=== PATIENT | male | born 1950 | race Caucasian/White ===

== ENCOUNTER 2023-01-17 14:15 | Outpatient (CLI) | payer BC, SELFPAY ==
[2023-01-17 19:09] LABS: Kit Draw Collected
== END 2023-01-17 14:16 | disposition home or self-care (01) ==
LOC: ANHGOSHLAB 14:17
PROVIDERS: PCP Family Medicine; Visit Provider Family Medicine
DX: E78.5 Hyperlipidemia, unspecified (principal); E53.8 Deficiency of other specified B group vitamins; E11.9 Type 2 diabetes mellitus without complications; I10 Essential (primary) hypertension; R97.20 Elevated prostate specific antigen [PSA]; Z12.5 Encounter for screening for malignant neoplasm of prostate
CPT/HCPCS: 36415

== ENCOUNTER 2023-05-06 02:01 | Day surgery (SDC) | payer BC, SELFPAY ==
[2023-04-19 14:24] VITALS: BMI 27.0
--- NOTE | 2023-05-03 10:10 | SUR.PREOP ---
Patient called regarding upcoming procedure. Reviewed preop instructions, appointment times, and procedure prep.
--- NOTE | 2023-05-03 17:19 | PM.HPGS ---
History of Present Illness History of Present Illness Consent: Risks, benefits, and alternatives have been discussed and questions answered. Patient agrees to proceed with procedure. Chief complaint: neoplasm screening Narrative: Guero Antoine is a 73 year old male Referred for colon cancer screening. Review of Systems Review of Systems: All systems reviewed & are unremarkable except as noted in HPI and below PMFSH Past Medical History Medical History Dyslipidemia Environmental allergies Essential (primary) hypertension GERD without esophagitis History of colon polyps Type 2 diabetes mellitus without complication, without long-term current use of insulin 10/11/2017 Surgical History Surgical History History of appendectomy age 7 [place] teeth extracted in the Family History Family History Other Diabetes mellitus Social History Social History Smoking status: Never smoker Second hand tobacco smoke exposure: No Alcohol intake: never Substance use: never Substance use type: does not use Lack of Transportation: No Lack of Food: Never True Current Housing: I Have Housing Concerned About Future Housing: No Difficulty Paying Gas/Electric Bills: No Difficulty Paying for Meds: No Currently Unemployed: No Education: Bachelor's Degree Difficulty w/ Childcare or Family Care: No Living arrangements: with family Additional living arrangements comments: Occupation/Education: retired Gender identity (if verbalized by the patient): Male Sexual Orientation (if Verbalized by the Patient): Straight or Heterosexual Spiritual care concerns: No Agree to blood products: Yes Meds Home Medications and Allergies Home Medications Medication Instructions Recorded Confirmed Type loratadine 10 mg tablet 10 mg PO DAILY 06/19/19 05/06/23 History omeprazole 20 mg capsule,delayed 20 mg PO DAILY 06/19/19 05/06/23 History release lancets 33 gauge (Gale Hurtado #100 ea 06/21/19 05/06/23 Rx Lancets) multivitamin (Daily Multi-Vitamin 1 tablet PO DAILY 01/17/23 05/06/23 History tablet) omega-3 650 mg-dha 400 mg-epa 200 1 cap PO DAILY 01/17/23 05/06/23 History mg-fish oil-vit D3 300 unit capsule ([place]-3 Plus Vitamin D3) lisinopril 20 mg tablet 20 mg PO DAILY #90 tabs 03/12/23 05/06/23 Rx chlorthalidone 50 mg tablet 50 mg PO DAILY #90 tabs 03/25/23 05/06/23 Rx simvastatin 20 mg tablet 20 mg PO QHS #90 tabs 04/16/23 05/06/23 Rx semaglutide 0.25 mg or 0.5 mg (2 0.25 mg (0.368 mL) subcut WEEKLY 04/17/23 05/06/23 Rx mg/3 mL) subcutaneous pen injector #3 mL (Dropbox) Allergies Allergy/AdvReac Type Severity Reaction Status Date / Time No Known Allergies Allergy Unknown Verified 05/06/23 09:11 Exam Const: General: alert Orientation/consciousness: patient oriented x3 Resp: Auscultation: clear to auscultation bilaterally Cardio: Rhythm: regular rhythm GI: GI Palp: Yes Soft to palpation and No Tenderness to palpation present (GI) Neuro: General: patient oriented x3 Assessment and Plan Assessment and plan (1) Colon cancer screening: Code(s): Z12.11 - Encounter for screening for malignant neoplasm of colon Status: Acute Assessment and Plan: Colonoscopy with possible biopsy or polypectomy or cautery or injection of substances.
[2023-05-06 09:05] VITALS: BP 137/81; PULSE 83; RESP 16; TEMP 36.3; O2SAT 97; BMI 27.0
[2023-05-06] MEDS: LACTATED RINGERS 1,000 ML 150 ML IV CONT (09:25)
[2023-05-06 09:29] LABS: Glucose Point of Care 113 mg/dl (65-105)
--- NOTE | 2023-05-06 10:08 | WPDANESEPPF ---
Anes - Initial Pre Proc Eval Procedure: Operation Date: 05/06/23 10:00 Proposed Procedures p Screening Colonoscopy - Tony Phelan MD Date/Time: 05/06/23 10:08 Surgeon: Tony Phelan MD Pre Op Diagnosis: neoplasm screening Patient Data Age: 73 Gender: M Height: 1.8 m Weight: 88 kg Last Vital Signs Temp 97.4 F L 05/06/23 09:05 Pulse 83 05/06/23 09:05 Resp 16 05/06/23 09:05 BP 137/81 05/06/23 09:05 Pulse Ox 97 05/06/23 09:05 O2 Del Method Room Air 05/06/23 09:05 Allergies Allergy/AdvReac Type Severity Reaction Status Date / Time No Known Allergies Allergy Unknown Verified 05/06/23 09:11 Home Medications Medication Instructions Recorded Confirmed Type loratadine 10 mg tablet 10 mg PO DAILY 06/19/19 05/06/23 History omeprazole 20 mg capsule,delayed 20 mg PO DAILY 06/19/19 05/06/23 History release lancets 33 gauge (OneTouch Delica #100 ea 06/21/19 05/06/23 Rx Lancets) multivitamin (Daily Multi-Vitamin 1 tablet PO DAILY 01/17/23 05/06/23 History tablet) omega-3 650 mg-dha 400 mg-epa 200 1 cap PO DAILY 01/17/23 05/06/23 History mg-fish oil-vit D3 300 unit capsule ([place]-3 Plus Vitamin D3) lisinopril 20 mg tablet 20 mg PO DAILY #90 tabs 03/12/23 05/06/23 Rx chlorthalidone 50 mg tablet 50 mg PO DAILY #90 tabs 03/25/23 05/06/23 Rx simvastatin 20 mg tablet 20 mg PO QHS #90 tabs 04/16/23 05/06/23 Rx semaglutide 0.25 mg or 0.5 mg (2 0.25 mg (0.368 mL) subcut WEEKLY 04/17/23 05/06/23 Rx mg/3 mL) subcutaneous pen injector #3 mL (Ozempic) Laboratory Tests 05/06/23 09:18 POC Capillary Glucose 113 H mg/dl (65-105) Patient hx anesthesia problems: none Family hx anesthesia problems: none Results Review: All pre-operative results and documents have been reviewed as part of the pre-operative evaluation. [facility] Past Medical History Medical History Dyslipidemia Environmental allergies Essential (primary) hypertension GERD without esophagitis History of colon polyps Type 2 diabetes mellitus without complication, without long-term current use of insulin 10/11/2017 Surgical History Surgical History History of appendectomy age 7 [place] teeth extracted in the Family History Family History Other Diabetes mellitus Social History Social History Smoking status: Never smoker Second hand tobacco smoke exposure: No Alcohol intake: never Substance use: never Substance use type: does not use Lack of Transportation: No Lack of Food: Never True Current Housing: I Have Housing Concerned About Future Housing: No Difficulty Paying Gas/Electric Bills: No Difficulty Paying for Meds: No Currently Unemployed: No Education: Bachelor's Degree Difficulty w/ Childcare or Family Care: No Living arrangements: with family Additional living arrangements comments: Occupation/Education: retired Gender identity (if verbalized by the patient): Male Sexual Orientation (if Verbalized by the Patient): Straight or Heterosexual Spiritual care concerns: No Agree to blood products: Yes Anes - Eval Final PreProcedure Day of Procedure 05/06/23 10:08 Patient weight: obese Heart: regular rate and rhythm Lungs: clear to auscultation Airway: Mallampati scale class II Neurological: alert and oriented Last oral intake: >/= 8 hours ASA classification: III Emergent: no Anesthetic plan: proceed Anesthesia type and monitoring: general GIVS and standard monitoring Results Review: All pre-operative results and documents have been reviewed as part of the pre-operative evaluation. Informed Consent: The patient's anesthetic plan and its attendant risks and benefits were discussed with the patient/family/
[2023-05-06 10:28] VITALS: BP 100/64; PULSE 65; RESP 12; O2SAT 95
[2023-05-06 10:38] VITALS: BP 112/71; PULSE 66; RESP 12; O2SAT 96
[2023-05-06 10:48] VITALS: BP 111/75; PULSE 62; RESP 16; O2SAT 100
== END 2023-05-06 10:53 | disposition home or self-care (01) ==
PROVIDERS: PCP Family Medicine; Visit Provider Internal Medicine Gastroenterology
PROC: 0DJD8ZZ Inspection of Lower Intestinal Tract, Via Natural or Artificial Opening Endoscopic (ICD-10-PCS; CPT 45378; principal; 2023-05-06 10:00)
DX: Z12.11 Encounter for screening for malignant neoplasm of colon (principal); K57.30 Diverticulosis of large intestine without perforation or abscess without bleeding; E78.5 Hyperlipidemia, unspecified; I10 Essential (primary) hypertension; K21.9 Gastro-esophageal reflux disease without esophagitis; E11.9 Type 2 diabetes mellitus without complications; E66.9 Obesity, unspecified; Z68.27 Body mass index [BMI] 27.0-27.9, adult; Z79.85 Long-term (current) use of injectable non-insulin antidiabetic drugs; Z86.010 Personal history of colon polyps
CPT/HCPCS: 45378; 82948; J2704; J7120

== ENCOUNTER 2023-11-28 11:20 | Outpatient (CLI) | payer BC, SELFPAY ==
[2023-11-28 11:35] LABS: Basophils Absolute Auto 0.1 K/mm3 (0.0-0.1); Basophils Percent Auto 0.7 % (0.2-1.2); Eosinophils Absolute Auto 0.1 K/mm3 (0-0.3); Eosinophils Percent Auto 0.8 % (0-4.4); Hematocrit 42.1 % (42.0-52.0); Hemoglobin 14.5 g/dL (14.0-18.0); Immature Granulocyte Absolute 0.03 K/mm3 (0.00-0.031); Immature Granulocyte Percent A 0.4 % (0-0.5); Lymphocytes Absolute Auto 2.31 K/mm3 (0.9-3.2); Lymphocytes Percent Auto 27.6 % (18.3-44.2); Mean Corpuscular HGB Conc 34.4 g/dl (32-36); Mean Corpuscular Hemoglobin 30.8 pg (26-34); Mean Corpuscular Volume 89.4 fl (80-100); Mean Platelet Volume 10.3 fl (7.4-10.4); Monocytes Absolute Auto 0.7 K/mm3 (0.1-0.6); Monocytes Percent Auto 8.4 % (2.6-8.5); Neutrophils Absolute Auto 5.2 K/mm3 (1.3-6.7); Neutrophils Percent Auto 62.1 % (45.5-73.1); Platelet Count Result 367 k/mm3 (150-375); Red Blood Count 4.71 M/mm3 (4.6-6.20); White Blood Count 8.4 K/mm3 (4.5-10.0)
== END 2023-11-28 11:21 | disposition home or self-care (01) ==
LOC: ANHLAB 11:21
PROVIDERS: PCP Family Medicine; Visit Provider Internal Medicine Hematology & Oncology
DX: D75.838 Other thrombocytosis (principal)
CPT/HCPCS: 36415; 85025

== ENCOUNTER 2024-02-03 11:23 | Outpatient (CLI) | payer BC, SELFPAY ==
[2024-02-03 14:35] LABS: Basophils Absolute Auto 0.1 K/mm3 (0.0-0.1); Basophils Percent Auto 0.7 % (0.2-1.2); Eosinophils Absolute Auto 0.1 K/mm3 (0-0.3); Eosinophils Percent Auto 0.7 % (0-4.4); Hemoglobin 15.5 g/dL (14.0-18.0); Immature Granulocyte Absolute 0.02 K/mm3 (0.00-0.031); Immature Granulocyte Percent A 0.2 % (0-0.5); Lymphocytes Absolute Auto 2.32 K/mm3 (0.9-3.2); Lymphocytes Percent Auto 23.6 % (18.3-44.2); Mean Corpuscular HGB Conc 33.7 g/dl (32-36); Mean Corpuscular Hemoglobin 30.6 pg (26-34); Mean Corpuscular Volume 90.7 fl (80-100); Mean Platelet Volume 10.7 fl (7.4-10.4); Monocytes Absolute Auto 0.8 K/mm3 (0.1-0.6); Monocytes Percent Auto 8.2 % (2.6-8.5); Neutrophils Absolute Auto 6.6 K/mm3 (1.3-6.7); Neutrophils Percent Auto 66.6 % (45.5-73.1); Platelet Count Result 450 k/mm3 (150-375); Red Blood Count 5.07 M/mm3 (4.6-6.20); Red Cell Distribution Width 12.7 % (11.5-14.5); White Blood Count 9.8 K/mm3 (4.5-10.0)
[2024-02-03 15:05] LABS: Creatinine Urine 200.7 mg/dL
[2024-02-03 15:09] LABS: Microalbumin Urine Random 8.1 mg/L (0-16.7)
[2024-02-03 15:23] LABS: Vitamin D 25 Hydroxy 35.1 ng/mL
[2024-02-03 16:48] LABS: Alanine Aminotransferase 28 U/L (6-50); Albumin Level 4.6 g/dL (3.5-5.1); Alkaline Phosphatase 78 U/L (38-126); Anion Gap 13 mmol/L (4-12); Aspartate Amino Transferase 81 U/L (17-59); Bilirubin,Total 1.5 mg/dL (0.2-1.3); Blood Urea Nitrogen 20 mg/dL (9-20); Calcium 9.5 mg/dL (8.4-10.2); Carbon Dioxide 30 mmol/L (22-30); Chloride 95 mmol/L (98-107); Cholesterol 160 mg/dL (0-200); Estimated Glomerular Filt Rate > 60; Glucose 113 mg/dL (65-110); HDL Direct 34 mg/dL; Potassium 3.6 mmol/L (3.4-5.0); Sodium 138 mmol/L (137-145); Triglycerides 122 mg/dL (<150)
[2024-02-03 17:00] LABS: LDL Cholesterol Direct 98 mg/dL
== END 2024-02-03 11:24 | disposition home or self-care (01) ==
LOC: ANHGOSHLAB 11:24
PROVIDERS: PCP Family Medicine; Visit Provider Family Medicine
DX: Z00.00 Encounter for general adult medical examination without abnormal findings (principal); I10 Essential (primary) hypertension; E11.9 Type 2 diabetes mellitus without complications; E78.5 Hyperlipidemia, unspecified; E53.8 Deficiency of other specified B group vitamins; E55.9 Vitamin D deficiency, unspecified
CPT/HCPCS: 36415; 80053; 80061; 82043; 82306; 82607; 83036; 85025

== ENCOUNTER 2024-03-16 12:15 | Outpatient (CLI) | payer BC, SELFPAY ==
--- NOTE | 2024-03-16 12:38 | ECG_ITS ---
Test Date: 2024-03-16 12:59:47 Measurements Intervals [place] Rate: 88 P: 5 VT: 139 QRS: -39 QRSD: 105 T: 34 QT: 363 QTc: 441 Interpretive Statements SINUS RHYTHM WITH ATRIAL PREMATURE COMPLEX LEFT AXIS DEVIATION DELAYED PRECORDIAL R/S TRANSITION NONSPECIFIC ST ELEVATION IN DIFFUSE LEADS BORDERLINE T WAVE ABNORMALITY- INFERIOR LEADS BASELINE ARTIFACT- I, II, III, AVR, AVL, AVF BORDERLINE ECG No previous ECG available for comparison Electronically Signed On 03-16-2024 13:44:14 CDT by Elías Neely D.O.
== END 2024-03-16 12:16 | disposition home or self-care (01) ==
LOC: ANHSURGERY 12:18
PROVIDERS: PCP Family Medicine; Visit Provider Urology
DX: Z01.818 Encounter for other preprocedural examination (principal); I10 Essential (primary) hypertension; I49.8 Other specified cardiac arrhythmias; I49.1 Atrial premature depolarization; I44.4 Left anterior fascicular block
CPT/HCPCS: 93005

== ENCOUNTER 2024-03-19 03:14 | Day surgery (SDC) | payer BC, SELFPAY ==
--- NOTE | 2024-03-10 06:58 | PM.HPGS ---
History of Present Illness History of Present Illness Consent: Risks, benefits, and alternatives have been discussed and questions answered. Patient agrees to proceed with procedure. Chief complaint: Elev PSA Narrative: Guero Antoine is a 74 year old male Who has previously undergone 1 prior negative prostate biopsy in July 2021 when his PSA was 6.1. He would now has a PSA of 15.77 and a prostate MRI showing a PI-RADS 5 16 mm lesion in the left anterior transition zone at the mid prostate. After discussion of options he elects for urodynamics prostate biopsy. He is aware of the risks including, but not limited to, hematuria, rectal bleeding and bacteremia Review of Systems Review of Systems: All systems reviewed & are unremarkable except as noted in HPI and below PMFSH Past Medical History Medical History Dyslipidemia Elevated platelet count Environmental allergies Essential (primary) hypertension GERD without esophagitis History of colon polyps Type 2 diabetes mellitus without complication, without long-term current use of insulin 10/11/2017 Surgical History Surgical History History of appendectomy age 7 History of cataract extraction with lens replacement (~08/2023) Right 05/09 Left 09/07 [place] teeth extracted in the Family History Family History Other Diabetes mellitus Social History Social History Smoking status: Never smoker Second hand tobacco smoke exposure: No Alcohol intake: never Substance use: never Substance use type: does not use Lack of Transportation: No Lack of Food: Never True Current Housing: I Have Housing Concerned About Future Housing: No Difficulty Paying Gas/Electric Bills: No Difficulty Paying for Meds: No Currently Unemployed: No Education: Bachelor's Degree Difficulty w/ Childcare or Family Care: No Living arrangements: with family Additional living arrangements comments: Occupation/Education: retired Gender identity (if verbalized by the patient): Male Sexual Orientation (if Verbalized by the Patient): Straight or Heterosexual Spiritual care concerns: No Agree to blood products: Yes Meds Home Medications and Allergies Home Medications Medication Instructions Recorded Confirmed Type loratadine 10 mg tablet 10 mg PO DAILY 06/19/19 02/03/24 History omeprazole 20 mg capsule,delayed 20 mg PO DAILY 06/19/19 02/03/24 History release lancets 33 gauge (Gale Hurtado #100 ea 06/21/19 02/03/24 Rx Lancets) multivitamin (Daily Multi-Vitamin 1 tablet PO DAILY 01/17/23 02/03/24 History tablet) omega-3 650 mg-dha 400 mg-epa 200 1 cap PO DAILY 01/17/23 02/03/24 History mg-fish oil-vit D3 300 unit capsule ([place]-3 Plus Vitamin D3) chlorthalidone 50 mg tablet 50 mg PO DAILY #90 tabs 12/23/23 02/03/24 Rx metformin 500 mg tablet,extended 2,000 mg PO DAILY #360 tabs 01/13/24 02/03/24 Rx release 24 hr simvastatin 20 mg tablet 20 mg PO QHS #90 tabs 01/14/24 02/03/24 Rx lisinopril 20 mg tablet 20 mg PO DAILY #90 tabs 03/09/24 Rx Allergies Allergy/AdvReac Type Severity Reaction Status Date / Time No Known Allergies Allergy Unknown Verified 02/03/24 10:39 Exam Const: General: no acute distress Resp: Effort & Inspection: normal respiratory effort GI: Inspection: non-distended GI Palp: No abdominal tenderness and No Guarding due to palpation present (GI) Auscultation: normal bowel sounds Assessment and Plan Assessment and plan (1) Elevated PSA: Code(s): R97.20 - Elevated prostate specific antigen [PSA] Status: Acute Assessment and Plan: UroNav prostate biopsy
[2024-03-16 10:51] VITALS: BMI 27.1
--- NOTE | 2024-03-16 10:52 | PC.NURSE ---
Report to the Outpatient Waiting Room, entrance under the green pavilion located off [facility], at time _0600_ on date _[id number]_. Planned Procedure Time: _0730_.? Time changes happen often and if your time is changed the preop area will call you the afternoon before. - You and your visitor will be asked to self-screen and do not enter if you have any COVID symptoms. Please call surgeon if you need to reschedule. - A mask is optional within the hospital at this time. Patients may have clear liquids (water, carbonated beverages, clear teas, apple juice) until 3 hours prior to surgery with a maximum of 20 ounces. - No food from midnight until time of surgery and no smoking Take only the following medications with a SIP of water on the morning of surgery: ____None DO NOT STOP ANY OF YOUR OTHER PRESCRIPTION MEDICATIONS PRIOR TO SURGERY EXCEPT THE FOLLOWING Medications to discontinue per physician Vitamins and fish oil Date to take last dose___Stop today. Please no make-up, nail ukrainian, hairspray, perfume, deodorant, or body powder the day of surgery.? No jewelry (including any body piercings) or valuables the day of surgery, leave them at home.? Please take a shower or bath the night before, or the morning of, surgery with an antibacterial soap.? Wear comfortable, loose fitting clothing.? - Jewelry must be removed prior to entering the operating room.? Rings and piercings that are not removed may be cut off. - The hospital will not accept responsibility for valuables.? - Please leave all valuables, including medications, at home the day of surgery. If you are going home after surgery, a licensed fork truck driver must drive you home.? - NO public transportation without another adult if you receive anesthesia. - We recommend that an adult stay with you for 24 hours following discharge. - We also recommend that you do not drive, make important decision, drink alcoholic beverages, or take any drugs that were not prescribed by your health care provider for at least 24 hours after your discharge time. Follow any additional instructions given to you from your surgeon. Telephone instructions given to __Mike__and asked if any additional questions and then verbalized understanding. Patient advised to call surgeon office or pre surgery nurse liaison [phone] if any additional questions.
[2024-03-19 06:35] VITALS: BP 136/76; PULSE 73; RESP 18; TEMP 36.4; O2SAT 98
--- NOTE | 2024-03-19 06:39 | WPDHPUPDATE1 ---
History and Physical Update Update Date/Time: 03/19/24 06:39 History and Physical has been reviewed, including an updated exam of the patient. There are NO changes in the patient's condition. Risks, benefits, and alternatives have been discussed and questions answered. Patient agrees to proceed with procedure.
[2024-03-19] MEDS: LACTATED RINGERS 1,000 ML 30 ML IV CONT (06:40)
[2024-03-19 06:46] LABS: Glucose Point of Care 113 mg/dl (65-105)
--- NOTE | 2024-03-19 06:57 | WPDANESEPPF ---
Anes - Initial Pre Proc Eval Procedure: Operation Date: 03/19/24 07:30 Proposed Procedures p Trans Rectal Ultrasound Fusion Guided Prostate Biopsy - Benjamin Deutsch MD Date/Time: 03/19/24 06:57 Surgeon: Benjamin Deutsch MD Pre Op Diagnosis: Elev PSA Patient Data Age: 74 Gender: M Height: 1.8 m Weight: 89.4 kg Last Vital Signs Temp 97.5 F L 03/19/24 06:35 Pulse 73 03/19/24 06:35 Resp 18 03/19/24 06:35 BP 136/76 03/19/24 06:35 Pulse Ox 98 03/19/24 06:35 O2 Del Method Room Air 03/19/24 06:35 Allergies Allergy/AdvReac Type Severity Reaction Status Date / Time No Known Allergies Allergy Unknown Verified 03/19/24 06:48 Home Medications Medication Instructions Recorded Confirmed Type loratadine 10 mg tablet 10 mg PO DAILY 06/19/19 03/19/24 History omeprazole 20 mg capsule,delayed 20 mg PO DAILY 06/19/19 03/19/24 History release lancets 33 gauge (OneTouch Delica #100 ea 06/21/19 03/19/24 Rx Lancets) multivitamin (Daily Multi-Vitamin 1 tablet PO DAILY 01/17/23 03/19/24 History tablet) omega-3 650 mg-dha 400 mg-epa 200 1 cap PO DAILY 01/17/23 03/19/24 History mg-fish oil-vit D3 300 unit capsule ([place]-3 Plus Vitamin D3) chlorthalidone 50 mg tablet 50 mg PO DAILY #90 tabs 12/23/23 03/19/24 Rx metformin 500 mg tablet,extended 2,000 mg PO DAILY #360 tabs 01/13/24 03/19/24 Rx release 24 hr simvastatin 20 mg tablet 20 mg PO QHS #90 tabs 01/14/24 03/19/24 Rx lisinopril 20 mg tablet 20 mg PO DAILY #90 tabs 03/09/24 03/19/24 Rx Laboratory Tests 03/19/24 06:40 POC Capillary Glucose 113 H mg/dl (65-105) Patient hx anesthesia problems: none Family hx anesthesia problems: none Results Review: All pre-operative results and documents have been reviewed as part of the pre-operative evaluation. [facility] Past Medical History Medical History Dyslipidemia Elevated platelet count Environmental allergies Essential (primary) hypertension GERD without esophagitis History of colon polyps Type 2 diabetes mellitus without complication, without long-term current use of insulin 10/11/2017 Surgical History Surgical History History of appendectomy age 7 History of cataract extraction with lens replacement (~08/2023) Right 05/09 Left 09/07 [place] teeth extracted in the Family History Family History Other Diabetes mellitus Social History Social History Smoking status: Never smoker Second hand tobacco smoke exposure: No Alcohol intake: never Substance use: never Substance use type: does not use Lack of Transportation: No Lack of Food: Never True Current Housing: I Have Housing Concerned About Future Housing: No Difficulty Paying Gas/Electric Bills: No Difficulty Paying for Meds: No Currently Unemployed: No Education: Bachelor's Degree Difficulty w/ Childcare or Family Care: No Living arrangements: with family Additional living arrangements comments: Occupation/Education: retired Gender identity (if verbalized by the patient): Male Sexual Orientation (if Verbalized by the Patient): Straight or Heterosexual Spiritual care concerns: No Agree to blood products: Yes Anes - Eval Final PreProcedure Day of Procedure 03/19/24 06:57 Patient weight: overweight Heart: regular rate and rhythm Lungs: clear to auscultation Airway: Mallampati scale class II and special considerations (Chips to upper teeth noted. ) Neurological: alert and oriented Last oral intake: >/= 8 hours ASA classification: III Emergent: no Anesthetic plan: proceed Anesthesia type and monitoring: general GIVS and standard monitoring Results Review: All pre-operative results and documents
[2024-03-19 07:52] VITALS: BP 99/69; PULSE 63; RESP 20; O2SAT 97
--- NOTE | 2024-03-19 07:56 | P.OP_ITS ---
Procedure Note - Detailed Date of Procedure 03/19/24 Pre-op Diagnosis Elevated PSA and abnormal prostate MRI Post-op Diagnosis Same Procedure Performed UroNav prostate fusion biopsy Surgeon Benjamin Deutsch MD Anesthesia General Description of Procedure Patient is brought to the operative suite where he is positioned in the left lateral position. Systemic sedation is administered per the anesthesia department. Surgical time-out is undertaken and it's verified the patient has received preoperative antibiotics. Transrectal ultrasonography is undertaken with a standard transrectal probe. The [employer] DigitalNav system is used to superimpose his previously obtained mpMRI prostate images on the real-time transrectal ultrasond images. Prostate volume is calculated at []cc. On the previous mpMRI there is one region of interest. Using the transrectal needle design for prostate biopsies 3 cores from each region of interest her obtain. We then proceeded with a standard 12 core prostate biopsy. Transrectal probe was removed and patient taken to recovery room having tolerated the procedure well. Blood loss was less than 2 cc. Pathology Yes Complications No immediate complications
[2024-03-19 08:12] LABS: Glucose Point of Care 103 mg/dl (65-105)
[2024-03-19 08:20] VITALS: BP 117/69; PULSE 66; O2SAT 94
[2024-03-19 08:50] VITALS: BP 113/70; PULSE 63
== END 2024-03-19 08:57 | disposition home or self-care (01) ==
PROVIDERS: PCP Family Medicine; Visit Provider Urology
PROC: (CPT 55700; principal; 2024-03-19 07:30)
DX: C61 Malignant neoplasm of prostate (principal); E11.9 Type 2 diabetes mellitus without complications; I10 Essential (primary) hypertension; E78.5 Hyperlipidemia, unspecified; K21.9 Gastro-esophageal reflux disease without esophagitis; Z79.84 Long term (current) use of oral hypoglycemic drugs
CPT/HCPCS: 76872; 55700; 82948; 88342; G0416; J0696; J2003; J2250; J2405; J2704; J3010; J7120

== ENCOUNTER 2024-04-02 08:27 | Outpatient (CLI) | payer BC, SELFPAY ==
--- NOTE | ~2024-04-02 | CT_ITS ---
Non-contrast CT scan of the Abdomen and Pelvis Clinical indication: Benign prosthetic hyperplasia Technique: 2.5 mm axial scans were obtained through the abdomen and pelvis without intravenous or or al contrast. Dose reduction technique was used on this scan by utilizing automated exposure control a nd iterative reconstruction technique. The dose-length product (DLP) was 790.90 mGy-cm. Findings: Images through the lung bases reveal no abnormalities. There is no evidence of renal or ureteral calculi. The kidneys and the ureters are nondilated. The liver, spleen, pancreas, and adrenals appear normal. Small calcified gallstone noted. There are a therosclerotic calcifications of the aorta. . There is no evidence of bowel obstruction. There is minimal haziness in the central mesentery with sh otty lymph nodes noted. Images through the pelvis were performed. There is no evidence of ascites or lymphadenopathy. Urinary bladder unremarkable. Prostate gland enlarged. Chronic appearing compression deformity of L1 noted, moderate in severity. Impression: Enlarged prostate gland, consistent with provided history of BPH. Mild mesenteric panniculitis. Cholelithiasis. L1 compression fracture, likely chronic. Reviewed, dictated and finalized at location . Impression: Enlarged prostate gland, consistent with provided history of BPH. Mild mesenteric panniculitis. Cholelithiasis. L1 compression fracture, likely chronic.
--- NOTE | ~2024-04-02 | NM_ITS ---
EXAMINATION: NM bone scan whole body DATE: 04/02/2024 12:32 INDICATION: Benign prostatic hyperplasia TECHNIQUE: 26.8 mCi Tc-99m HDP was administered intravenously. Delayed whole-body scintigrams were o btained. COMPARISON: CT abdomen and pelvis dated 04/02/2024 FINDINGS: Small focus of mild uptake at the lateral right superior orbital rim which corresponds in location to a small lytic lesion with sclerotic margins on CT from 12 years prior with the chronicity favoring a benign etiology such as fibrous dysplasia which can demonstrate increased uptake on bone scan. 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 Persistent typical pattern of likely degenerative joint centered uptake at the radial aspect of the bilateral carpi, left greater than right and at multiple interphal angeal joints in both hands. Additional mild likely degenerative joint centered uptake at the patello femoral compartment the left knee and at the bilateral acromion and sternoclavicular joints. No other suspicious foci of abnormal bone uptake to suggest metastatic disease. IMPRESSION: 1. Tiny focus of increased uptake along the right supraorbital rim correspond to a small peripherally sclerotic lytic lesion which was evident on CT 12 years prior favoring a benign etiology such as fib gen dysplasia. No other suspicious foci of abnormal bone uptake to suggest metastatic disease. 2. Scattered likely degenerative joint centered uptake in the axial and axial skeleton as detailed ab ove. Reviewed, dictated and finalized at location A. IMPRESSION: 1. 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 No other suspicious foci of abnormal bone uptake to suggest metastatic disease. 2. Scattered likely degenerative joint centered uptake in the axial and axial s [place] as detailed above.
== END 2024-04-02 08:28 | disposition home or self-care (01) ==
PROVIDERS: PCP Family Medicine; Visit Provider Urology
DX: N40.1 Benign prostatic hyperplasia with lower urinary tract symptoms (principal); K80.20 Calculus of gallbladder without cholecystitis without obstruction
CPT/HCPCS: 74176; 78306; A9503

== ENCOUNTER 2024-08-10 11:37 | Outpatient (CLI) | payer BC, SELFPAY ==
--- OUTSIDE RECORDS SUMMARY | 2024-08-10 13:34 | XMS_ITS | Clinical Summary ---
Author Organization [facility] Address [address], [address] [address] Phone Care Team Providers Care Limousine And Hearse Upholsterer Name Role Phone No Camarillo MD Primary Care Provider Allergies Active Allergy Reactions Criticality Noted Date Comments Other Unknown Seasonal allergies Medications Multiple Vitamin (MULTIVITAMINS PO) daily. Active Glucosamine HCl (GLUCOSAMINE PO) 2 times daily. Activ e Cetirizine HCl (ZYRTEC PO) 10 mg daily. Activ e NIACIN PO 500 mg 2 times daily. Active LISINOPRIL PO 10 mg daily. Act caleb CHLORTHALIDONE PO 50 mg daily. Active Simvastatin (ZOCOR PO) 20 mg daily. Active Multiple Vitamins-Minera ls (ZINC PO) 100 mg daily. Act caleb polyethylene glycol (MIRALAX) Powder Use entire bottle of 255 grams of miralax for Colon prep as directed by office. 255 g 8 Active LORATADINE PO Take by mouth daily. Active Coenzyme Q10 (CO Q 10 PO) Take by mouth daily. Active metFORMIN (GLUCOPHAGE) 500 MG Tablet Take 500 mg by mouth daily (with dinner). Active Semaglutide,0.2 5 or 0.5MG/DOS, (Ozempic, 0.25 or 0.5 MG/DOSE,) 2 MG/1.5ML Solution Pen-injector 0.5 mg by Subcutaneous route once a week. THURSDAYS Active Active Problems Problem Noted Date Diagnosed Date HTN (hypertension) Dyslipidemia Family History Medical History Relation Name Comments Diabetes Father Heart Disease Father Other-comment Mother TIA Relation Name Status Comments Father Mother Alive Social History Tobacco Use Types Packs/Day Years Used Date Smoking Tobacco: Never Smokeless Tobacco: Never Tobacco Cessation:Counseling Given: Not Answered Alcohol Use Standard Drinks/Week Comments Not Currently 0 (1 standard drink = 0.6 oz pur e alcohol) Comments Unknown Sex and Gender Information Value Date Recorded Sex Assigned at Not on file Legal Sex Female 11:47 PM CDT Gender Identity Not on file Sexual Orientation Not on file Last Filed Vital Signs Vital Sign Reading Time Taken Comments Blood Pressure 127/78 05/13/2023 11:18 AM MIXER HELPER Pulse 71 05/13/2023 11:18 AM MIXER HELPER Temperature 36.6 C (97.8 F) 05/13/2023 11:18 AM MIXER HELPER Respiratory Rate 16 05/13/2023 11:18 AM MIXER HELPER Oxygen Saturation 96% 05/13/2023 11:18 AM MIXER HELPER Inhaled Oxygen Concentration - - Weight 88.5 kg (195 lb) 05/01/2023 1:00 PM MIXER HELPER Height 180.3 cm (5' 11 ) 05/01/2023 1:00 PM MIXER HELPER Body Mass Index 27.2 05/01/2023 1:00 PM MIXER HELPER Plan of Treatment Health Maintenance Due Date Last Done Comments DEXA Bone Density 1950 Hepatitis C Virus (HCV) Screening 1950 Mammogram 1950 TdaP Immunization 1950 Cologuard 02/05/2002 Immunochemical Fecal Occult Blood 02/05/2002 Pneumococcal Immunization (5 0+ years) (1 of 1 - PCV) 02/05/2002 Zoster Immunization (1 of 2) 02/05/2002 Colonoscopy 11/07/2022 11/07/2017, 09/28/2010 Colorectal Cancer Screening 11/07/2022 Influenza Immunization (#1) 2024 SARS-COV-2 Immunization ( - season) 2024 Respiratory Syncytial Virus (RSV) Immunization (Adult) (1 - 1-dose 75+ series) 02/05/2027 11/07/2017, 09/28/2010 Hepatitis B Immunization Aged Out No longer eligible based on patient's age to complete this topic Meningococcal Immunization (ACWY) Aged Out No longer eligible b ased on patient's age to complete this topic Rotavirus Immunization Aged Out No lo nger eligible based on patient's age to complete this topic Medical Devices Implanted Type Area Pile Driver Operator Barge Mounted Device Identifier Shelf Expiration Date Model / Serial / Lot Right Lens Implanted:Qty: 1 on 03/11/2023 by Guero Brito MD at [facility] Right: Eye LEVI & LEVI 04/17/2024 [id number] / [id number] / [id number] Left Lens Implanted:Qty: 1 on 05/13/2023 by Guero Brito MD at [facility] Left: Eye LEVI & LEVI 07/09/2024 [id number] / [id number] / [id number] Procedures Procedure Name Priority Date/Time Associated Diagnosis Comments COLONOSCOPY Routine 11/07/2017 from Last 3 Months or Most Recently Relevant to Health Maintenance Results * COLONOSCOPY (11/07/2017) Smooth Contreras DO PROCEDURE/MINOR SURGICAL ORDERA BLES Final Result from Last 3 Months or Most Recently Relevant to Health Maintenance Insurance Care Teams Limousine And Hearse Upholsterer Relationship Specialty Start Date End Date No Camarillo MD PCP - General Family Medicine 07/02/17
--- OUTSIDE RECORDS SUMMARY | 2024-08-10 13:34 | XMS_ITS | Clinical Summary ---
Author Organization [facility] Address [address] [place] [address] Care Team Providers Care Bailing Machine Operator Name Role Phone No Camarillo MD Primary Care Provider Allergies No known active allergies Medications loratadine (CLARITIN) 10 mg tablet Take 10 mg by mouth daily. Active metFORMIN (GLUCOPHAGE) 500 mg tablet Take 500 mg by mouth. Active lisinopriL (PRINIVIL) 10 mg tablet Take 20 mg by mouth daily. Active chlorthalidone (HYGROTON) 50 mg tablet Take 50 mg by mouth daily. Active simvastatin (ZOCOR) 20 mg tablet Take 20 mg by mouth daily with supper. Active aspirin (ECOTRIN EC) 81 mg Tablet, Delayed Release (E.C.) Take 81 mg by mouth daily. Active Active Problems No known active problems Encounters Date Type Department Care Team Description 07/15/2024 External Device Data STL ABSTRACTION Provider, Abstract 07/09/2024 External Device Data STL ABSTRACTION Provider, Abstract from Last 3 Months Family History Medical History Relation Name Comments Diabetes Brother Cancer Father Diabetes Father Diabetes Sister Relation Name Status Comments Brother Alive Father Mother Alive Sister Alive Social History Tobacco Use Types Packs/Day Years Used Date Smoking Tobacco: Never Smokeless Tobacco: Never Alcohol Use Standard Drinks/Week Comments Never 0 (1 standard drink = 0.6 oz pur e alcohol) Sex and Gender Information Value Date Recorded Sex Assigned at Not on file Legal Sex Male 10:17 AM CDT Gender Identity Not on file Sexual Orientation Not on file Last Filed Vital Signs Vital Sign Reading Time Taken Comments Blood Pressure 121/80 11/28/2023 11:37 AM CDT Pulse 75 11/28/2023 11:37 AM CDT Temperature 36.3 C (97.3 F) 11/28/2023 11:37 AM CDT Respiratory Rate 14 11/28/2023 11:37 AM CDT Oxygen Saturation 93% 11/28/2023 11:37 AM CDT Inhaled Oxygen Concentration - - Weight 88.9 kg (196 lb) 11/28/2023 11:37 AM CDT Height 180.3 cm (5' 11 ) 05/15/2023 10:14 AM AREA RELIEF PILOT Body Mass Index 27.34 05/15/2023 10:14 AM AREA RELIEF PILOT Plan of Treatment Upcoming Encounters Date Type Department Care Team (Late st Contact Info) Description 12/01/2024 10:00 AM CDT Office Visit [facility] Oncology and Hematology - [place] [address] [facility] [address] [place] [address] Kadeem Ellsworth MD [address] [facility] [address] [place] [address] Health Maintenance Due Date Last Done Comments DTAP/TDAP/TD VACCINES (1 - Tdap) 02/05/1971 FIT-DNA Q 3 years 02/05/1997 FIT/FOBT Q 1 year 02/05/1997 Flex Sig/CT Colonography Q 5 years 02/05/1997 PNEUMOCOCCAL VACCINE 65+ YEARS (1 of 1 - PCV) 02/06/20 02 ZOSTER VACCINE (1 of 2) 02/05/2002 INFLUENZA VACCINE (#1) 2024 RSV VACCINE (60+ or ) (1 - 1-dose 75+ series) 02/05/2027 COLORECTAL SCREENING 11/08/2027 11/07/2017 Colorectal Cancer Screening 11/08/2027 Insurance MEDICARE PART A HOSPITAL ONLY BCBS FEDERAL Care Teams Bailing Machine Operator Relationship Specialty Start Date End Date No Camarillo MD [address] [place] [address] PCP - General Family Practice 05/15/23
[2024-08-10 20:04] LABS: Alanine Aminotransferase 29 U/L (6-50); Albumin Level 4.3 g/dL (3.5-5.1); Alkaline Phosphatase 81 U/L (38-126); Anion Gap 12 mmol/L (4-12); Aspartate Amino Transferase 38 U/L (17-59); Bilirubin,Total 1.2 mg/dL (0.2-1.3); Blood Urea Nitrogen 22 mg/dL (9-20); Calcium 9.3 mg/dL (8.4-10.2); Carbon Dioxide 29 mmol/L (22-30); Chloride 98 mmol/L (98-107); Estimated Glomerular Filt Rate > 60; Glucose 108 mg/dL (65-110); Potassium 3.5 mmol/L (3.4-5.0); Sodium 139 mmol/L (137-145)
[2024-08-10 22:27] LABS: Hemoglobin A1C 6.3 % (<5.7)
[2024-08-11 00:14] LABS: Thyroid Stimulating Hormone Reflex 0.994 uIU/mL (0.465-4.68)
== END 2024-08-10 11:38 | disposition home or self-care (01) ==
LOC: ANHGOSHLAB 11:38
PROVIDERS: PCP Family Medicine; Visit Provider Family Medicine
DX: E11.9 Type 2 diabetes mellitus without complications (principal); I10 Essential (primary) hypertension
CPT/HCPCS: 36415; 80053; 83036; 84443

== ENCOUNTER 2024-12-01 09:58 | Outpatient (CLI) | payer BC, SELFPAY ==
[2024-12-01 10:22] LABS: Basophils Absolute Auto 0.1 K/mm3 (0.0-0.1); Basophils Percent Auto 0.8 % (0.2-1.2); Eosinophils Absolute Auto 0.1 K/mm3 (0-0.3); Eosinophils Percent Auto 1.5 % (0-4.4); Immature Granulocyte Absolute 0.02 K/mm3 (0.00-0.031); Immature Granulocyte Percent A 0.3 % (0-0.5); Lymphocytes Absolute Auto 2.15 K/mm3 (0.9-3.2); Lymphocytes Percent Auto 27.4 % (18.3-44.2); Mean Corpuscular HGB Conc 34.1 g/dl (32-36); Mean Corpuscular Hemoglobin 30.5 pg (26-34); Mean Corpuscular Volume 89.4 fl (80-100); Mean Platelet Volume 10.4 fl (7.4-10.4); Monocytes Absolute Auto 0.8 K/mm3 (0.1-0.6); Monocytes Percent Auto 9.7 % (2.6-8.5); Neutrophils Absolute Auto 4.7 K/mm3 (1.3-6.7); Neutrophils Percent Auto 60.3 % (45.5-73.1); Platelet Count Result 371 k/mm3 (150-375); Red Blood Count 4.92 M/mm3 (4.6-6.20); Red Cell Distribution Width 12.5 % (11.5-14.5); White Blood Count 7.9 K/mm3 (4.5-10.0)
[2024-12-01 10:24] LABS: Blood Urea Nitrogen 21 mg/dL (8-26); Carbon Dioxide 26 mmol/L (22-30); Chloride 100 mmol/L (98-109); Estimated Glomerular Filt Rate > 60; Glucose 133 mg/dL (70-105); Ionized Calcium (POC) 1.13 mmol/L (1.11-1.31); Potassium 3.4 mmol/L (3.5-4.9); Sodium 139 mmol/L (138-146)
--- OUTSIDE RECORDS SUMMARY | 2024-12-01 10:59 | XMS_ITS | Encounter Summary ---
Author Organization [facility] [employer] [facility] Address [address] [place] [address] Care Team Providers Care Glycerine Plant Operator Name Role Phone No Camarillo MD Primary Care Provider Reason for Visit * Reason Comments Follow Up Encounter Details Date Type Department Care Team (Late st Contact Info) Description 12/01/2024 10:00 AM CDT Office Visit [facility]] Oncology and Hematology - [place] [address] [facility] [address] [place] [address] Kadeem Ellsworth MD [address] [facility] [address] [place] [address] Reactive thrombocytosis (Primary Dx) Social History Tobacco Use Types Packs/Day Years Used Date Smoking Tobacco: Never Smokeless Tobacco: Never Tobacco Cessation:Counseling Given: Not Answered Alcohol Use Standard Drinks/Week Comments Never 0 (1 standard drink = 0.6 oz pur e alcohol) Sex and Gender Information Value Date Recorded Sex Assigned at Not on file Legal Sex Male 10:17 AM CDT Gender Identity Not on file Sexual Orientation Not on file documented as of this encounter Last Filed Vital Signs Vital Sign Reading Time Taken Comments Blood Pressure 133/84 12/01/2024 10:19 AM CDT Pulse 65 12/01/2024 10:19 AM CDT Temperature 36.3 C (97.4 F) 12/01/2024 10:19 AM CDT Respiratory Rate 15 12/01/2024 10:19 AM CDT Oxygen Saturation 95% 12/01/2024 10:19 AM CDT Inhaled Oxygen Concentration - - Weight 89.2 kg (196 lb 9.6 oz) 12/01/2024 10:19 AM CDT Height - - Body Mass Index 27.42 05/15/2023 10:14 AM DATA ENTRY MACHINE OPERATOR documented in this encounter Progress Notes * Kadeem Ellsworth MD - 12/01/2024 10:26 AM CDT HEMATOLOGY / ONCOLOGY PROGRESS NOTE Patient Identification: Name: Guero Antoine Age: 74 y.o. Sex: male : 1950 DIAGNOSIS Thrombocytosis and leukocytosis CURRENT TREATMENT Surveillance TREATMENT HISTORY SUBJECTIVE Patient came into the office for follow-up visit. He denies any chest pain and shortness of breath.Denies any night sweats fevers and chills. Weight and appetite stable. No other new complaints. Review of system Constitutional: Patient did not mention fevers, sweats, denies any tiredness and fatigue, weight and appetite stable HEENT: Patient did not mention sinus congestion, hearing or vision problems Respiratory: Patient did not mention cough, dyspnea, wheeze Cardiovascular: Patient did not mention chest pain, exertional chest pressure/discomfort, nausea, syncope, shortness of breath GI: Patient did not mention constipation, diarrhea, dsyphagia, reflux symptoms, vomiting, melena : Patient did not mention dysuria, frequency, incontinence, urgency Integumentary system: no lymphadenopathy, sweats, flushing Musculoskeletal: Patient not mention: myalgia, arthralgia Neurological: Patient did not mention blurry or disturbed vision, numbness/weakness, dizziness Skin: No lumps, bumps or rashes. 12 point review of system was reviewed Objective: Vital signs in last 24 hours: As per nursing note Exam: General appearance: alert, cooperative, no distress, appears stated age Head: normocephalic, without obvious abnormality, atraumatic Eyes: conjunctivae/corneas clear, EOM's intact Ears: normal external ear canals AU Nose: Nares normal. Septum midline. Mucosa normal. No drainage or sinus tenderness Throat: Lips, mucosa, and tongue normal. Teeth and gums normal Neck: supple, symmetrical, trachea midline. Lungs: clear to auscultation bilaterally Heart: regular rate and rhythm, S1, S2 normal, no murmur, click, rub or gallop Abdomen: soft, non-tender. Bowel sounds normal. No masses, No organomegaly Extremities: extremities normal, atraumatic, no cyanosis or edema Skin: Skin color, texture, turgor normal. No rashes or lesions Lymph nodes: No lymphadenopathy Neuro: No obvious focal deficit Exam as above PATH LABS Labs from May 15 showed JAK2 mutation negative ferritin 167 CRP 2.4 WBC 11.8 hemoglobin 15.8 platelet 394,000 Labs from November 27 showed WBC 8.4 hemoglobin 14.4 platelet 3 67,000 Labs from December 01 showed WBC 7.9 hemoglobin 15 platelet 371,000 Assessment: Plan: There are no active problems to display for this patient. Thrombocytosis. JAK2 mutation negative. Labs showed normal platelet count. He is asymptomatic. Continue aspirin. Reactive leukocytosis. Resolved. Hypertension. Stable. Type 2 diabetes. This has been managed by the primary care physician. He is on metformin. Follow-up as needed. 12/01/2024 Kadeem Ellsworth MD documented in this encounter Plan of Treatment Not on file documented as of this encounter Visit Diagnoses Diagnosis Reactive thrombocytosis- Primary documented in this encounter Care Teams Glycerine Plant Operator Relationship Specialty Start Date End Date No Camarillo MD [address] [place] [phone] PCP - General Family Practice 05/15/23 documented as of this encounter
--- OUTSIDE RECORDS SUMMARY | 2024-12-01 11:00 | XMS_ITS | Clinical Summary ---
Author Organization [facility] Address [address], [address] [address] Phone Care Team Providers Care Strip Machine Operator Name Role Phone No Camarillo [...] Comments Blood Pressure 127/78 05/13/2023 11:18 AM BATCH MIXER Pulse 71 05/13/2023 11:18 AM BATCH MIXER Temperature 36.6 C (97.8 F) 05/13/2023 11:18 AM BATCH MIXER Respiratory Rate 16 05/13/2023 11:18 AM BATCH MIXER Oxygen Saturation 96% 05/13/2023 11:18 AM BATCH MIXER Inhaled Oxygen Concentration - - Weight 88.5 kg (195 lb) 05/01/2023 1:00 PM BATCH MIXER Height 180.3 cm (5' 11) 05/01/2023 1:00 PM BATCH MIXER Body Mass Index 27.2 05/01/2023 1:00 PM BATCH MIXER Plan of Treatment Health Maintenance Due Date Last Done Comments DEXA Bone Density 1950 Hepatitis C Virus (HCV) Screening 1950 Mammogram 1950 TdaP Immunization 1950 Cologuard 02/05/1997 Immunochemical Fecal Occult Blood 02/05/1997 Pneumococcal Immunization (5 0+ years) (1 of 1 - PCV) 02/05/2002 Zoster Immunization (1 of 2) 02/05/2002 Colonoscopy 11/07/2022 11/07/2017, 09/28/2010 Colorectal Cancer Screening 11/07/2022 SARS-COV-2 Immunization ( - 2023- season) 2024 Influenza Immunization (Seas on Ended) 2025 Respiratory Syncytial Virus (RSV) Immunization (Adult) (1 - 1-dose 75+ series) 02/05/2027 Hepatitis B Immunization Aged Out No longer eligible based on patient's age to complete this topic Human Papillomavirus (HPV) Immunization Aged Out No longer eligible b ased on patient's age to complete this topic Meningococcal Immunization (ACWY) Aged Out No longer eligible b ased on patient's age to complete this topic Rotavirus Immunization Aged Out No lo nger eligible based on patient's age to complete this topic Medical Devices Implanted Type Area Recovery Operator Helper Device Identifier Shelf Expiration Date Model / Serial / Lot Right Lens Implanted:Qty: 1 on 03/11/2023 by Guero Brito MD at [facility] Right: Eye LEVI & LEVI 04/17/2024 [id number] / [id number] / [id number] Left Lens Implanted:Qty: 1 on 05/13/2023 by Guero Brito MD at [facility] Left: Eye LEVI & LEVI 07/09/2024 [id number] / [id number] / [id number] Procedures Procedure Name Priority Date/Time Associated Diagnosis Comments COLONOSCOPY Routine 11/07/2017 from Last 3 Months or Most Recently Relevant to Health Maintenance Results * COLONOSCOPY (11/07/2017) Smooth Contreras DO PROCEDURE/MINOR SURGICAL ORDERA BLES Final Result from Last 3 Months or Most Recently Relevant to Health Maintenance Insurance [facility] Care Teams Strip Machine Operator Relationship Specialty Start Date End Date No Camarillo MD PCP - General Family Medicine 07/02/17
--- OUTSIDE RECORDS SUMMARY | 2024-12-01 11:00 | XMS_ITS | Encounter Summary ---
Author Organization [facility] Address [address] [place] [address] Care Team Providers Care Forensic Document Examiner Name Role Phone No Camarillo MD Primary Care Provider Encounter Details Date Type Department Care Team (Late st Contact Info) Description 12/01/2024 Orders Only [facility] Oncology and Hematology - [place] [address] [facility] [address] [place] [address] Kadeem Ellsworth MD [address] [facility] [address] [place] [address] Reactive thrombocytosis (Primary Dx) Social [...] on file documented as of this encounter Plan of Treatment Scheduled Orders Name Type Priority Associated Diagnoses Orde r Schedule BASIC METABOLIC PANEL Lab Routine Reactive thrombocytosis Expected: 12/01/2024, Expires: 12/01/2025 CBC WITH DIFFERENTIAL Lab Routine Reactive thrombocytosis Expected: 12/01/2024, Expires: 12/01/2025 documented as of this encounter Visit Diagnoses Diagnosis Reactive thrombocytosis- Primary documented in this encounter Care Teams Forensic Document Examiner Relationship Specialty Start Date End Date No Camarillo MD [address] [place] [address] PCP - General Family Practice 05/15/23 documented as of this encounter
--- OUTSIDE RECORDS SUMMARY | 2024-12-01 11:00 | XMS_ITS | Clinical Summary ---
Author Organization [facility]3] [employer] el[employer] Sorto Address [address] [place] [address] Care Team Providers Care Incinerator Attendant Name Role Phone No Camarillo MD Primary [...] Encounters Date Type Department Care Team Description 12/01/2024 10:00 AM CDT Office Visit [facility]3] Oncology and Hematology [facility] [address] [place] [address] Kadeem Ellsworth MD Reactive thrombocytosis (Primary Dx) 12/01/2024 Orders Only [facility]3] Oncology and [facility] [address] [place] [address] Kadeem Ellsworth MD Reactive thrombocytosis (Primary Dx) 11/05/2024 External Device Data STL ABSTRACTION Provider, Abstract 11/04/2024 External Device Data STL ABSTRACTION Provider, Abstract 11/04/2024 External Device Data STL ABSTRACTION Provider, Abstract 09/29/2024 External Device Data STL ABSTRACTION Provider, Abstract 09/22/2024 External Device Data STL ABSTRACTION Provider, Abstract 09/02/2024 External Device Data STL ABSTRACTION Provider, Abstract [...] 9.6 oz) 12/01/2024 10:19 AM CDT Height 180.3 cm (5' 11) 05/15/2023 10:14 AM SENIOR INSTRUCTOR Body Mass Index 27.42 05/15/2023 10:14 AM SENIOR INSTRUCTOR Plan of Treatment Health Maintenance Due Date Last Done Comments DIABETES ANNUAL FOOT EXAM 02/05/1970 DIABETES ANNUAL RETINAL EXAM 02/05/1970 DIABETES HBA1C Q 6 MONTHS 02/05/1970 DIABETES MICROALBUMIN ANNUAL SCREEN 02/05/1970 LDL CHOLESTEROL ANNUAL 02/05/1970 DTAP/TDAP/TD VACCINES (1 - Tdap) 02/05/1971 PNEUMOCOCCAL VACCINE 50+ YEARS (1 of 2 - PCV) 02/05/19 71 FIT-DNA Q 3 years 02/05/1997 FIT/FOBT Q 1 year 02/05/1997 Flex Sig/CT Colonography Q 5 years 02/05/1997 ZOSTER VACCINE (1 of 2) 02/05/2002 INFLUENZA VACCINE (#1) 2024 RSV VACCINE (60+ or ) (1 - 1-dose 75+ series) 02/05/2027 COLORECTAL SCREENING 11/08/2027 11/07/2017 Colorectal Cancer Screening 11/08/2027 [place] [address] MEDICARE PART A HOSPITAL ONLY BCBS FEDERAL Care Teams Incinerator Attendant Relationship Specialty Start Date End Date No Camarillo MD [address] [place] [address] PCP - General Family Practice 05/15/23
== END 2024-12-01 09:59 | disposition home or self-care (01) ==
LOC: ANHLAB 09:58
PROVIDERS: PCP Family Medicine; Visit Provider Internal Medicine Hematology & Oncology
DX: D75.838 Other thrombocytosis (principal)
CPT/HCPCS: 36415; 80047; 85025

== ENCOUNTER 2025-02-22 10:53 | Outpatient (CLI) | payer BC, SELFPAY ==
--- OUTSIDE RECORDS SUMMARY | 2025-02-22 11:20 | XMS_ITS | Clinical Summary ---
Author Organization [facility] Maheshtorey elisa Sorto Address [address] [place] [address] Care Team Providers Care Historical Records Administrator Name Role Phone No Camarillo MD Primary [...] Encounters Date Type Department Care Team Description 02/16/2025 External Device Data STL ABSTRACTION Provider, Abstract 12/07/2024 Orders Only [facility] Oncology and Hematology - [place] [address] [place] [phone] Kadeem Ellsworth MD 12/02/2024 Orders Only [facility] Oncology and Hematology - [place] [address] [place] [address] Kadeem Ellsworth MD 12/01/2024 10:00 AM CDT Office Visit [facility] Oncology and Hematology - [place] [address] [place] [address] Kadeem Ellsworth MD Reactive thrombocytosis (Primary Dx) 12/01/2024 Orders Only [facility] Oncology and Hematology - [place] [address] [place] [address] Kadeem Ellsworth MD Reactive thrombocytosis (Primary Dx) from Last 3 Months Family History Medical [...] 180.3 cm (5' 11) 05/15/2023 10:14 AM COSMETIC MANAGER Body Mass Index 27.42 05/15/2023 10:14 AM COSMETIC MANAGER Plan of Treatment Health Maintenance Due Date [...] (1 of 2) 02/05/2002 INFLUENZA VACCINE (#1) 2025 RSV VACCINE (60+ or ) (1 - 1-dose 75+ series) 02/05/2027 COLORECTAL SCREENING 11/08/2027 11/07/2017 Colorectal Cancer Screening 11/08/2027 Procedures Procedure Name Priority Date/Time Associated Diagnosis Comments BASIC METABOLIC PANEL Routine 12/01/2024 2:41 PM CDT CBC WITH DIFFERENTIAL Routine 12/01/2024 12:52 PM CDT from Last 3 Months Results * BASIC METABOLIC PANEL (12/01/2024 2:41 PM CDT) Blood Kadeem Ellsworth MD CHEMISTRY ORDERABLES Final Resu lt * CBC WITH DIFFERENTIAL (12/01/2024 12:52 PM CDT) Blood Kadeem Ellsworth MD HEMATOLOGY ORDERABLES Final Res ult from Last 3 Months Insurance MEDICARE PART A HOSPITAL ONLY BCBS FEDERAL Care Teams Historical Records Administrator Relationship Specialty Start Date End Date No Camarilol MD [address] [place] [phone] PCP - General Family Practice 05/15/23
--- OUTSIDE RECORDS SUMMARY | 2025-02-22 11:20 | XMS_ITS | Clinical Summary ---
Author Organization [facility] Address [address], [address] [address] Phone Care Team Providers Care Fish Stringer Assembler Name Role Phone No Camarillo MD Primary [...] Comments Blood Pressure 127/78 05/13/2023 11:18 AM DIRECTOR CARDIOVASCULAR Pulse 71 05/13/2023 11:18 AM DIRECTOR CARDIOVASCULAR Temperature 36.6 C (97.8 F) 05/13/2023 11:18 AM DIRECTOR CARDIOVASCULAR Respiratory Rate 16 05/13/2023 11:18 AM DIRECTOR CARDIOVASCULAR Oxygen Saturation 96% 05/13/2023 11:18 AM DIRECTOR CARDIOVASCULAR Inhaled Oxygen Concentration - - Weight 88.5 kg (195 lb) 05/01/2023 1:00 PM DIRECTOR CARDIOVASCULAR Height 180.3 cm (5' 11) 05/01/2023 1:00 PM DIRECTOR CARDIOVASCULAR Body Mass Index 27.2 05/01/2023 1:00 PM DIRECTOR CARDIOVASCULAR Plan of Treatment Health Maintenance Due Date Last Done Comments DEXA Bone Density 1950 Hepatitis C Virus (HCV) Screening 1950 Mammogram 1950 TdaP Immunization 1950 Cologuard 02/05/1997 Immunochemical Fecal Occult Blood 02/05/1997 Pneumococcal Immunization (5 0+ years) (1 of 1 - PCV) 02/05/2002 Zoster Immunization (1 of 2) 02/05/2002 Colonoscopy 11/07/2022 11/07/2017, 09/28/2010 Colorectal Cancer Screening 11/07/2022 Influenza Immunization (#1) 2025 SARS-COV-2 Immunization ( - season) 2025 Respiratory Syncytial Virus (RSV) Immunization (Adult) [...] this topic Medical Devices Implanted Type [employer] Director Device Identifier Shelf Expiration Date Model / Serial / Lot Right Lens Implanted:Qty: 1 on 03/11/2023 by Guero Brito MD at [facility] Right: Eye LEIV & LEVI 04/17/2024 [id number] / [id number] / [id number] Left Lens Implanted:Qty: 1 on 05/13/2023 by Guero Brito MD at [facility] Left: Eye LEVI & LEVI 07/09/2024 [id number] / [id number] / [id number] Procedures Procedure Name Priority Date/Time Associated Diagnosis Comments COLONOSCOPY Routine 11/07/2017 from Last 3 Months or Most Recently Relevant to Health Maintenance Results * COLONOSCOPY (11/07/2017) Smooth Contreras DO PROCEDURE/MINOR SURGICAL ORDERA BLES Final Result from Last 3 Months or Most Recently Relevant to Health Maintenance Insurance [facility] Care Teams Fish Stringer Assembler Relationship Specialty Start Date End Date No Camarillo MD PCP - General Family Medicine 1/16/18
[2025-02-22 12:55] LABS: Hematocrit 46.2 % (42.0-52.0); Hemoglobin 15.2 g/dL (14.0-18.0); Immature Granulocyte Percent A 0.2 % (0-0.5); Immature Platelet Fraction Pct 4.0 % (0.9-11.2); Lymphocytes Absolute Auto 2.16 K/mm3 (0.9-3.2); Mean Corpuscular HGB Conc 32.9 g/dl (32-36); Mean Corpuscular Hemoglobin 30.1 pg (26-34); Mean Corpuscular Volume 91.5 fl (80-100); Nucleated Red Blood Cells Absolute Auto 0.000 K/mm3 (0.0-0.012); Nucleated Red Blood Cells Perc 0.0 % (0.0-0.2); Platelet Count Result 352 k/mm3 (150-375); Red Blood Count 5.05 M/mm3 (4.6-6.20); White Blood Count 9.9 K/mm3 (4.5-10.0)
[2025-02-22 13:00] LABS: Hemoglobin A1C 6.1 % (<5.7)
[2025-02-22 13:14] LABS: MALB Creatinine Ratio 4.7 mg/g (0-30)
[2025-02-22 13:21] LABS: Alanine Aminotransferase 34 U/L (6-50); Albumin Level 4.4 g/dL (3.5-5.1); Alkaline Phosphatase 81 U/L (38-126); Anion Gap 7 mmol/L (4-12); Aspartate Amino Transferase 73 U/L (17-59); Bilirubin,Total 1.4 mg/dL (0.2-1.3); Blood Urea Nitrogen 23 mg/dL (9-20); Calcium 9.5 mg/dL (8.4-10.2); Carbon Dioxide 31 mmol/L (22-30); Chloride 101 mmol/L (98-107); Cholesterol 171 mg/dL (0-200); Estimated Glomerular Filt Rate > 60; Glucose 111 mg/dL (65-110); HDL Direct 35 mg/dL; Potassium 3.8 mmol/L (3.4-5.0); Sodium 139 mmol/L (137-145); Total Protein 7.5 g/dL (6.3-8.2); Triglycerides 122 mg/dL (<150)
[2025-02-22 13:34] LABS: Thyroid Stimulating Hormone Reflex 0.830 uIU/mL (0.465-4.68)
[2025-02-22 13:56] LABS: Prostate Specific Antigen 20.0 ng/mL (< OR = 4.0)
[2025-02-22 14:15] LABS: Vitamin B12 587.0 pg/mL (239-931)
== END 2025-02-22 10:54 | disposition home or self-care (01) ==
LOC: ANHGOSHLAB 10:53
PROVIDERS: PCP Family Medicine; Visit Provider Family Medicine
DX: E78.5 Hyperlipidemia, unspecified (principal); E53.8 Deficiency of other specified B group vitamins; Z12.5 Encounter for screening for malignant neoplasm of prostate; Z00.00 Encounter for general adult medical examination without abnormal findings; E11.9 Type 2 diabetes mellitus without complications; E55.9 Vitamin D deficiency, unspecified; I10 Essential (primary) hypertension
CPT/HCPCS: 36415; 80053; 80061; 82043; 82306; 82607; 83036; 84153; 84443; 85025; 85055; G0103